=== PATIENT | male | born 1980 | race Hispanic/Latino ===

== ENCOUNTER 2017-07-02 15:51 | Emergency (ER) | payer SELFPAY ==
[2017-07-02 16:14] VITALS: BP 139/84
--- NOTE | 2017-07-02 16:52 | ERNOTE ---
Date of Service: 07/02/17 Time Seen by Provider: 07/02/17 16:00 Stated Complaint: COUGH, FEVER Presenting Symptoms:: cough, sore throat, runny nose Source: patient Exam Limitations: no limitations Immunizations: IMMUNIZATION HX Immunizations Up to Date Yes: Reports having tetanus vaccine 5 yrs ago Allergies/Adverse Reactions: Allergies No Known Allergies Allergy (Verified 07/02/17 15:58) Home Medications: HOME MEDICATIONS Naproxen [Naprosyn] 500 mg PO BID #60 tablet 07/02/17 [Last Taken Unknown] Oseltamivir Phosphate [Tamiflu] 75 mg PO BID #10 cap 07/02/17 [Last Taken Unknown] - History of Present Ilness Narrative: Pt is a 37 year old male who presents with complaints of sore throat which has been progressively getting worse. He states his symptoms started less than 2 days ago. Also endorses nasal congestion, cough with small sputum production, fatigue, and body aches. Denies any fevers or chills, n/v/d, no recent travel or sick contacts, CP, or SOB. He did not have his influenza vaccine this year. He has been taking sudafed for his symptoms without relief, nothing exacerbates or relieves his symptoms. His influenza A is positive during ER testing. Date (Duration): 06/30/17 Time (Timing): 16:00 Timing: constant, getting worse Severity: moderate Frequency/Possible Cause: Reports: no prior episodes Modifying Factors - Improves: Reports: rest Modifying Factors - Worsens: Reports: nothing Associated Symptoms: Reports: cough, nasal congestion, nasal drainage, headache , sore throat, muscle aches. Denies: earache, fever/chills Review of Systems - Review of Systems Constitutional: Present: fatigue, malaise. Absent: fever, chills, weight loss EYE: Present: no symptoms reported ENT: Present: nose congestion, nasal drainage, sore throat. Absent: ear pain, ear discharge, throat swelling Respiratory: Present: cough. Absent: shortness of breath, wheezing Cardiology: Absent: chest pain, palpitations, edema Gastrointestinal/Abdominal: Absent: nausea, vomiting, diarrhea Genitourinary: Present: no symptoms reported Musculoskeletal: Present: muscle pain, muscle stiffness Skin: Present: no symptoms reported Neurological: Present: headache Endocrine: Present: no symptoms reported Hematologic/Lymphatic: Present: no symptoms reported Psych: Present: no symptoms reported - Patient's Past Medical History Patient History - Medical: No pertinent hx Patient History - Cardiac/Respiratory: No pertinent hx Patient History - Cancer: No Hx of Cancer Patient History - Surgical Procedures: No surgical history Patient History - Other: None - Social History Living Situations: home Psych History: No pertinent hx Alcohol Use: none Drug Use: none - Immunizations Immunizations Up to Date: Yes - Reports having tetanus vaccine 5 yrs ago Hx Pneumococcal Vaccination: No History of Influenza Vaccine: No Physical Exam - Physical Exam General Appearance: Present: wd/wn, alert, mild distress Head Exam: Present: normal inspection Eye Exam: Normal inspection: bilateral Ears, Nose, Throat: Present: nasal congestion, other - pharynx cobble stone in appearance. Absent: pharyngeal swelling, tonsillar swelling Neck: Present: nontender Respiratory: Present: normal breath sounds, no accessory muscle use, chest nontender, lungs clear Cardiovascular/Chest: Present: regular rate, rhythm, no murmur, normal peripheral pulses Gastrointestinal/Abdominal: Present: normal bowel sounds, nontender, nondistended, soft, no organomegaly Neurological Exam: Present: alert, oriented, normal mood/affect, no motor/ sensory deficits Skin Exam: Present: normal color, warm/dry Lymphatic Exam: Present: no adenopathy ED Progress - Results and Orders Patient's Lab Results:: I have reviewed the patient's lab results. - Vital Signs Patient's Vital Signs:: I have reviewed the patient's vital signs. Vital Signs: Vital Signs 07/02/17 07/02/17 15:55 16:13 Temperature 37.4 C Pulse Rate 82 86 Respiratory 12 14 Rate Blood Pressure 145/94 139/84 O2 Sat by Pulse 97 98 Oximetry - Progress/Reassessment Chief Complaint: Upper Respiratory Symptoms Plan - Plan Plan: As we are inside of the 48 hour window for treatment of Tamiflu, he will be given appropriate prescription. Given Naproxen PRN for general body aches. Has been told to take Tylenol for fevers. Increased fluid intake. Return to the Er for any further concern or worsening of symptoms. Departure Clinical Impression: Influenza A virus present - Departure Disposition: Home self-care Condition: Good Instructions: Influenza, Adult, [id number] Prescriptions: Naproxen [Naprosyn] 500 mg PO BID #60 tablet Oseltamivir Phosphate [Tamiflu] 75 mg PO BID #10 cap
== END 2017-07-02 16:57 | disposition home or self-care (01) ==
LOC: ER 15:51
DX: J10.1 Influenza due to other identified influenza virus with other respiratory manifestations (principal)